=== PATIENT | female | born 1965 | race Caucasian/White ===

== ENCOUNTER → 2018-08-02 | Outpatient (CLI) | payer OTHER | END | disposition home or self-care (01) | LOC: CPPFTMAIN 09:53 | PROVIDERS: ATTEND Family Medicine | DX: J44.9 Chronic obstructive pulmonary disease, unspecified (principal); J45.40 Moderate persistent asthma, uncomplicated | CPT/HCPCS: 94060; 94726; 94729 ==

== ENCOUNTER → 2018-08-15 | Outpatient (CLI) | payer OTHER ==
--- NOTE | 2018-08-15 08:24 | US ---
EXAMINATION TYPE: US thyroid st tissue head/neck DATE OF EXAM: 08/15/2018 COMPARISON: NONE CLINICAL HISTORY: R23.13 Dysphagia, pharyngeal phase. Patient states " something feels like it's stuc k on left side" GLAND SIZE: Right Lobe: 3.7 x 1.5 x 1.3 cm Overall Parenchyma: homogenous Left Lobe: 4.1 x 1.3 x 1.4 cm Overall Parenchyma: homogeneous Isthmus Thickness: 0.2 cm NODULES RIGHT: # of nodules measured on right: 1 1. 0.6 X 0.3 x 0.6 cm hypoechoic mixed nodule at the lower pole with well-defined margins; . This nodule is wider than tall and shows intranodular vascularity. Prior size: NO PRIOR LEFT: # of nodules measured on left: Multiple subcentimeter( < 5 mm) nodules ISTHMUS: # of nodules measured in the isthmus: 0 Bilateral neck scanned, no evidence of lymphadenopathy. IMPRESSION: Bilateral subcentimeter thyroid nodules. These do not meet criteria for fine-needle aspiration and alcazar rveillances and could be performed in 12 months.
--- NOTE | 2018-08-15 09:16 | FL ---
EXAMINATION TYPE: FL barium swallow DATE OF EXAM: 08/15/2018 CLINICAL HISTORY: Dysphagia, voice changing TECHNIQUE: A double contrast esophagram is performed utilizing air and barium. A total of 2 minutes and 42 seconds of fluoroscopic time was utilized during procedure. 67 fluoroscopic images were saved . COMPARISON: None FINDINGS: The esophagus shows normal motility in the upright position however few tertiary contractio ns are seen in the supine position. There is delayed emptying into the stomach secondary to a low-gra de incomplete stricture at the gastroesophageal junction. No evidence of hiatal hernia. Very mild ga stroesophageal reflux was seen during real time performance of this study in the supine position only . With mild intraesophageal reflux also seen. Note is also made of vallecular and piriform retention of contrast expelled with multiple swallows with the thick barium consistency. IMPRESSION: 1. Delayed emptying into the stomach secondary to a distal esophageal low-grade incomplete stricture. 2. Very mild gastroesophageal reflux and mild intraesophageal reflux. 3. Vallecular and piriform retention of contrast with the thick barium consistency expelled by multip le swallows. 4. Few tertiary contractions seen on the supine view only likely mild presbyesophagus. Neuromuscular disorders are and alternative less likely consideration.
== END | disposition home or self-care (01) ==
LOC: RADUSWWP 07:39
PROVIDERS: ATTEND Family Medicine
DX: K21.9 Gastro-esophageal reflux disease without esophagitis (principal); E04.1 Nontoxic single thyroid nodule
CPT/HCPCS: 74220; 76536

== ENCOUNTER → 2018-10-17 | Outpatient (CLI) | payer OTHER ==
--- NOTE | 2018-10-17 12:24 | MM ---
Reason for exam: follow-up at short interval from prior study. History: Family history of breast cancer in sister at age 49. Taking progesterone. Physical Findings: Nurse did not find any significant physical abnormalities on exam. MG Diagnostic Mammo RT w CAD CC and MLO view(s) were taken of the right breast. The breast tissue is heterogeneously dense. This may lower the sensitivity of mammography. No suspicious abnormality. Right lower inner quadrant biopsy marker. No increase of number of calcifications, biopsy proven benign. These results were verbally communicated with the patient and result sheet given to the patient on 10/17/18. ASSESSMENT: Benign, BI-RAD 2 RECOMMENDATION: Ultrasound. (patient will be due for left ultrasound in November 2018)
--- NOTE | 2018-10-17 12:26 | USB ---
Reason for exam: follow-up at short interval from prior study. History: Family history of breast cancer in sister at age 49. Taking progesterone. US Breast RT Right complete breast ultrasound includes all four quadrants, the retroareolar region and axilla. Finding demonstrates a 0.5 x 0.5 x 0.4cm cystic lesion at 7 o'clock and a 0.4 x 0.5 x 0.4cm cystic lesion at 9 o'clock. Both in dense tissue. These results were verbally communicated with the patient and result sheet given to the patient on 10/17/18. ASSESSMENT: Benign, BI-RAD 2 RECOMMENDATION: Ultrasound in 2 months. Patient is due for a left ultrasound in November 2018.
== END | disposition home or self-care (01) ==
LOC: RADMAMWWP 09:44
PROVIDERS: ATTEND Family Medicine
DX: R92.8 Other abnormal and inconclusive findings on diagnostic imaging of breast (principal); Z98.890 Other specified postprocedural states
CPT/HCPCS: 77065

== ENCOUNTER 2018-11-16 10:10 | Day surgery (SDC) | payer OTHER ==
[2018-11-16 11:53] VITALS: TEMP 97.5
[2018-11-16 11:54] VITALS: RESP 16
[2018-11-16] MEDS ORDERED: LIDOCAINE 1% 20 ML VIAL (10MG/ML) FOR IV START INTRADERMA ONE (12:00)
[2018-11-16] MEDS ORDERED: LACTATED RINGERS 1,000 ML IV ONE (12:00)
[2018-11-16] MEDS ORDERED: PROPOFOL 10 MG/ML 20 ML VIAL IV ONE (12:12)
[2018-11-16] MEDS ORDERED: LIDOCAINE 1% INJ 10MG/ML (20 ML MDV) ONE (12:12)
--- NOTE | 2018-11-16 12:21 | P.PCN ---
Date of Procedure: 11/16/18 Procedure(s) Performed: BRIEF HISTORY: Patient is a 53-year-old, pleasant,, scheduled for an upper endoscopy as part of evaluation of intermittent dysphagia to solids for the last 5 years duration. She feels the food gets stuck in her throat area and has intermittent passive regurgitation and chronic cough.. PROCEDURE PERFORMED: Esophagogastroduodenoscopy with biopsy. PREOPERATIVE DIAGNOSIS: Dysphagia to solids of 5 years duration. IV sedation per anesthesia. PROCEDURE: After informed consent was obtained, the patient was brought into the endoscopy unit. IV sedation was administered by Anesthesia under continuous monitoring. Initially the Olympus GIF-140 video endoscope was inserted into the mouth. Esophagus intubated without any difficulty. It was gradually advanced into the stomach and duodenum and carefully examined. The bulb and the second part of the duodenum appeared normal. The scope at this time was withdrawn to the stomach, adequately insufflated with air, and upon careful examination, mucosa of the antrum had mild gastritis and biopsies were done from this area., body, cardia and the fundus appeared normal. The scope was then withdrawn into the esophagus. The GE junction was located at 39 cm from the incisors. The esophagus appeared normal. There were no erosions or ulcerations seen, multiple biopsies were done from the mid and distal esophagus . The proximal cervical esophagus was carefully examined which appeared normal and the patient tolerated the procedure well. IMPRESSION: 1. Mild gastritis. 2. Normal-appearing esophagus with no evidence of esophagitis or esophageal stricture. Status post multiple biopsies to rule out eosinophilic esophagitis. RECOMMENDATIONS: The findings of this examination were discussed with the patient as well as a family. She was advised to follow with the biopsy results.. She'll be seen in office in one to 2 weeks.
[2018-11-16 12:56] VITALS: BP 105/72; PULSE 71
== END 2018-11-16 13:02 | disposition home or self-care (01) ==
LOC: ORWHC2ENDO 10:10
PROVIDERS: ATTEND Internal Medicine Gastroenterology
DX: K21.0 Gastro-esophageal reflux disease with esophagitis (principal); K29.50 Unspecified chronic gastritis without bleeding; J45.909 Unspecified asthma, uncomplicated; Z79.899 Other long term (current) drug therapy
CPT/HCPCS: 81025; 88305; 88342; 43239; J2001; J2704

== ENCOUNTER → 2023-09-20 | Outpatient (CLI) | payer OTHER ==
--- NOTE | 2023-10-19 12:12 | MM ---
Reason for Exam: Screening (asymptomatic). Patient History: Menarche at age 10. First Full-Term at age 17. Hysterectomy at age 54. Postmenopausal. Patient has history of breast feeding. Sister had breast cancer, age 49. Risk Values: Tiffany 5 year model risk: 2.8%. NCI Lifetime model risk: 14.8%. Prior Study Comparison: 10/17/2018 Right Diagnostic Mammogram, [facility]. Tissue Density: The breasts are heterogeneously dense, which may obscure small masses. Findings: Analyzed By CAD. Nodular density upper outer right breast posterior one third is unchanged. No new masses seen. No suspicious macrocalcifications present. Overall Assessment: Benign, BI-RAD 2 Management: Screening Mammogram of both breasts in 1 year. Patient should continue monthly self-breast exams. A clinical breast exam by your physician is recommended on an annual basis. This exam should not preclude additional follow-up of suspicious palpable abnormalities. Note on Tiffany scores and lifetime risk: 1. A Tiffany score greater than 3% is considered moderate risk. If this is the case, consider specialist referral to assess eligibility for a risk reducing agent. 2. If overall lifetime risk for the development of breast cancer is 20% or higher, the patient may qualify for future screening with alternating mammogram and breast MRI. Electronically signed and approved by: Michael Pope M.D. Radiologis
== END | disposition home or self-care (01) ==
LOC: RADMAMWWP 12:43
PROVIDERS: ATTEND Family Medicine
DX: Z12.31 Encounter for screening mammogram for malignant neoplasm of breast (principal); R92.333 Mammographic heterogeneous density, bilateral breasts; Z78.0 Asymptomatic menopausal state; Z80.3 Family history of malignant neoplasm of breast
CPT/HCPCS: 77067